=== PATIENT | male | born 1980 | race Two or more races ===

== ENCOUNTER 2017-08-11 18:51 | Emergency (ER) | payer BC ==
[~2017-08-11] VITALS: Ht 190.5 cm; Wt 136.1 kg
[2017-08-11] MEDS ORDERED: Tetanus/Diptheria/Pertussis Vaccine 0.5ml Syr IM ONE (19:30)
--- NOTE | 2017-08-11 19:48 | Emergency Room Report ---
History of Present Illness General Chief Complaint: Laceration Source: Patient Present Illness HPI 36-year-old male patient presents ER complaining of laceration on the middle finger. Patient reports that he was trying to cut some plates and cut his middle finger on his right hand on the palm side. Patient reports he is right- hand dominant. Patient reports bleeding from site of injury. Patient does not know his tetanus vaccination status. Patient reports in with movement. Patient reports no fever, chest pain, shortness of breath. Denies loss sensation or range of motion. Allergies: Coded Allergies: No Known Allergies (Unverified , 08/11/17) Patient History Past Medical History: see triage record Reviewed Nursing Documentation: PMH: Agreed; PSxH: Agreed Nursing Documentation-PMH Past Medical History: No Stated History Review of Systems All Other Systems: negative except mentioned in HPI Physical Exam Vital Signs Date Time Temp Pulse Resp B/P (MAP) Pulse Ox O2 Delivery O2 Flow Rate FiO2 08/11/17 18:53 98.5 75 18 134/78 95 Room Air 98.4 Sp02 EP Interpretation: reviewed, normal General Appearance: well appearing, no apparent distress, alert, GCS 15, non- toxic Head: normocephalic, atraumatic Respiratory: lungs clear, normal breath sounds, no rhonchi, no respiratory distress, no accessory muscle use, no wheezing, speaking full sentences Cardiovascular #1: regular rate, rhythm, no edema Cardiovascular #2: 2+ radial (R), 2+ radial (L) Musculoskeletal: back normal, digits/nails normal, gait/station normal, normal range of motion - full flexion and extension of DIP, PIP and MCP joints, swelling, other - NVI, sensation intact to light touch, tender Neurologic: alert, oriented x3, responsive, motor strength/tone normal, sensory intact Skin: laceration - 2-3cm L-shaped laceration, superficial on right hand 3rd digit, skin avulsion Procedures Laceration/Wound Repair Laceration/Wound Repair : Consent: Verbal Wound Location: other - hand Wound's Depth, Shape: superficial Wound Length (cm): 3 Wound Explored: contaminated Irrigated w/ Saline (ccs): 10 Betadine Prep?: No Wound Debrided: extensive Wound Repaired With: Steri-strips, Dermabond Layer Closure?: No Sterile Dressing Applied?: Yes Sling Applied?: No Patient Tolerated: Well Complications: None Medical Decision Making PA Attestation Dr. Velasquez is my supervising Physician whom patient management has been discussed with. Diagnostic Impression: Primary Impression: Laceration ER Course Pt presents to ED c/o laceration on DDX considered but are not limited to laceration, abrasion, contusion, cellulitis. VITAL SIGNS are WNL, patient is afebrile ED INTERVENTIONS: Tdap provided to patient. Wound was cleaned and irrigated using normal saline. Wound superficial, consistent with skin avulsion, does not require sutures, will close with Dermabond and Steri-Strips. wound covered using sterile dressing and finger splint applied to prevent rupture. Followup in 2 days for wound check. Patient reports understanding and agreement to treatment plan. Keep wound clean and dry. discuss care with the patient. Provide abx. DISCHARGE: Rx provided for Keflex Rx provided for Bactrim Rx provided for Tylenol At this time pt is stable for d/c to home. Patient resting comfortably, in no acute distress, nontoxic appearing, talking without difficulty. Will provide with patient care instructions and any necessary prescriptions. Patient to take medication as instructed. Care plan and follow-up instructions provided. Work note provided to patient. Patient questions asked and answered. Patient reports understanding and agreement to treatment plan. Patient instructed to follow-up with primary care provider in 2-3 days for wound check. ER precautions given. Patient instructed to return to ER immediately for any new or worsening of symptoms. - Please note that this Emergency Department Report was dictated using [employer] manager technology software, occasionally this can lead to erroneous entry secondary to interpretation by the dictation equipment. Last Vital Signs Date Time Temp Pulse Resp B/P (MAP) Pulse Ox O2 Delivery O2 Flow Rate FiO2 08/11/17 18:53 98.5 75 18 134/78 95 Room Air 98.4 Disposition: HOME, SELF-CARE Condition: Stable Scripts Acetaminophen* (TYLENOL EXTRA STRENGTH*) 500 Mg Tablet 500 MG ORAL Q8H PRN for Prn Headache/Temp > 101, #30 TAB 0 Refills Prov: Renny Rivera.[place] 08/11/17 Trimethoprim/Sulfamethoxazole 160/800* (BACTRIM DS TABLET*) 1 Each Tablet 1 TAB ORAL TWICE A DAY for 7 Days, #14 TAB Prov: Renny Rivera.[place]ilton 08/11/17 Cephalexin* (KEFLEX*) 500 Mg Capsule 500 MG ORAL EVERY 12 HOURS, #14 CAP 0 Refills Prov: Renny Rivera 08/11/17 Patient Instructions: Laceration Care, Adult, Nonsutured Laceration Care Additional Instructions: Patient instructed to follow-up with primary care provider in 1-3 days for wound check. Take medications as directed. Keep wound clean and dry. Patient questions asked and answered. ER precautions given, patient instructed to return to ER immediately for any new or worsening of symptoms. Renny Rivera August 11, 2017 19:48
[2017-08-11] MEDS ORDERED: CEPHALEXIN500 MG ORAL (20:43)
[2017-08-11] MEDS ORDERED: BACTRIM DS TAB1 EAC1 ORAL (20:43)
[2017-08-11] MEDS ORDERED: TYLENOL EXTRA500 MG ORAL (20:43)
[2017-08-11 21:00] VITALS: BP 132/79
[2017-08-11 21:01] VITALS: BP 134/78
== END 2017-08-11 21:10 | disposition home or self-care (01) ==
LOC: EMR 19:05
DX: S61.212A Laceration without foreign body of right middle finger without damage to nail, initial encounter (principal); W25.XXXA Contact with sharp glass, initial encounter; Y92.9 Unspecified place or not applicable; Z23 Encounter for immunization
CPT/HCPCS: 90471; 90715; 99284